=== PATIENT | male | born 1955 | race Caucasian/White ===

== ENCOUNTER → 2019-03-29 | Outpatient (REF) | payer MEDICARE ==
[~2019-03-29] MED LIST: ALLO300T2 PO; ATEN25TA PO; COQ10 PO; COUM1TAB18 PO; CRESTOR PO; FLAXOIL PO; LANSOPRAZOLE PO; LISIPOW PO; MAPA500T17 PO; NAPRPOW4 PO; PERC7.5T12 PO; VITAMIN D 3 PO
== END ==
LOC: M SMT 17:07
PROVIDERS: ATTEND Nurse Practitioner Family
DX: R97.20 Elevated prostate specific antigen [PSA] (principal)
CPT/HCPCS: 87086; G0463

== ENCOUNTER → 2019-08-22 | Outpatient (CLI) | payer MEDICARE ==
[~2019-08-22] MED LIST changes: +ASPI81TA85 PO; +ATEN50TA2 PO; +ATIV1TAB10 PO; +GASTROGRAFIN SOLUTION 30ML (Q9963) As Ordered ONE; +ISOVUE-370 76% 100ML VIAL (Q9967) As Ordered ONE; +NAPR500T6 PO; +NORV5TAB PO; +PANT40TA3 PO; +TURM500C PO; +ZYLO300T6 PO
--- NOTE | 2019-08-22 19:44 | REP ---
CT abdomen and pelvis with IV and oral contrast: History: Lymphoproliferative disorder. CT contrast dose: 100 ml of intravenous Isovue 370. No comparison study. CT findings: The liver and spleen are normal in size homogeneous in texture. No focal hepatic or splenic lesion is seen. No adrenal lesion is observed. There is a tiny accessory splenule. No abnormalities noted in the pancreas. The gallbladder is unremarkable. The kidneys enhance symmetrically and are morphologically intact. A normal appendix is seen in the right lower quadrant. No retroperitoneal mass or adenopathy is observed. No small bowel or mesenteric adenopathy is seen. Small and large intestinal bowel loops are normal. There are surgical clips in right inguinal soft tissues consistent with previous herniorrhaphy. A left hip arthroplasty is seen in place. 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 Impression: No evidence of mass or adenopathy. Status post left hip arthroplasty. Electronically Signed by Jamshid Hardy MD 08/23/2019 09:46 A
--- NOTE | 2019-08-22 19:44 | REP ---
CT chest with IV contrast: History: Lymphocytosis. Lymphoproliferative disorder. No comparison chest CT study. CT contrast dose: 100 mL of intravenous Isovue 370. CT findings: There is tortuosity in the thoracic aorta. No aneurysm or dissection is seen. There is no CT evidence of pulmonary embolus. No pleural or pericardial effusion is seen. There are scattered normal size normal-appearing mediastinal and hilar lymph nodes. No extrathoracic mass or adenopathy is observed. No adrenal lesion is seen. On lung window settings, there is no evidence of infiltrate, mass, or significant pulmonary nodule. No bony destructive lesion is seen. No endobronchial lesion is appreciated. Impression: Scattered normal-sized hilar and mediastinal lymph nodes. No definite adenopathy. No active disease. Electronically Signed by Jamshid Hardy MD 08/23/2019 09:47 A
== END ==
LOC: M RAD 12:53
PROVIDERS: ATTEND Internal Medicine Medical Oncology
DX: D72.820 Lymphocytosis (symptomatic) (principal); Z96.642 Presence of left artificial hip joint
CPT/HCPCS: 71260; 74177; Q9963; Q9967

== ENCOUNTER 2022-07-08 09:14 | Outpatient (CLI) | payer MEDICARE ==
[~2022-07-08] VITALS: Ht 182.9 cm; Wt 94.1 kg
[~2022-07-08 09:14] MED LIST changes: -ASPI81TA85 PO; +ASPI81TA86 PO; +CO Q200C10 PO; +COVI30VI IM; +CRES10TA PO; +ECOT81TA5 PO; +FLAX100012 PO; -GASTROGRAFIN SOLUTION 30ML (Q9963) As Ordered ONE; -ISOVUE-370 76% 100ML VIAL (Q9967) As Ordered ONE; +LISI20TA33 PO; +PANT40TA29 PO; -PANT40TA3 PO; +VITA100093 PO
[2022-07-08 09:20] VITALS: BP 180/98
[2022-07-08 09:50] VITALS: BP 147/90
== END 2022-07-08 09:50 | disposition home or self-care (01) ==
LOC: M INFU 09:14
PROVIDERS: ATTEND Internal Medicine Medical Oncology
DX: E83.110 Hereditary hemochromatosis (principal)
CPT/HCPCS: 36415; 80053; 82728; 85025; 99195; G0463

== ENCOUNTER 2023-03-31 08:06 | Day surgery (SDC) | payer MEDICARE ==
[~2023-03-31] VITALS: Ht 180.3 cm; Wt 94.3 kg
[~2023-03-31 08:06] MED LIST changes: +GRAPESEED PO; +LANS30CA PO; +LISI40TA4 PO; +MAGN400C2 PO; +NS 1,000 ML IV ONE
[2023-03-31] MEDS ORDERED: propofoL 200 MG/20 ML VIAL As Ordered ONE ×2 (09:57→10:08)
[2023-03-31] MEDS ORDERED: fentaNYL 100 MCG/2 ML INJECTION As Ordered ONE (09:58)
[2023-03-31 10:25] VITALS: TEMP 96.8
[2023-03-31 10:45] VITALS: BP 111/67; O2SAT 93
== END 2023-03-31 11:01 | disposition home or self-care (01) ==
LOC: M OPP 08:06
PROVIDERS: ATTEND Internal Medicine Gastroenterology
DX: Z12.11 Encounter for screening for malignant neoplasm of colon (principal); K57.30 Diverticulosis of large intestine without perforation or abscess without bleeding; K22.89 Other specified disease of esophagus; K44.9 Diaphragmatic hernia without obstruction or gangrene
CPT/HCPCS: 43239; 88305; G0121; J3010